=== PATIENT | female | born 1965 | race Two or more races ===

== ENCOUNTER 2019-04-17 22:12 | Emergency (ER) | payer OTHER ==
[~2019-04-17] VITALS: Ht 165.1 cm; Wt 131.5 kg
[2019-04-17] MEDS ORDERED: CLONIDINE0.1 MG GT (22:27)
[2019-04-17 22:29] VITALS: BP 126/84
[2019-04-17] MEDS ORDERED: HYDROcodone/Acetamin 5/325 tab ORAL ONE (23:00)
--- NOTE | 2019-04-17 23:16 | Emergency Room Report ---
History of Present Illness General Chief Complaint: Multiple Trauma/Fall Source: Patient Present Illness HPI 53-year-old female who is morbidly obese. She presents with chief complaint of right rib pain. She slipped and fell in the shower. She said her right side hit the edge of the tub. This occurred just prior to arrival. Pain is to that area. Pain is worse with movement. Worse with inspiration. No nausea no vomiting. No fever chills. Pain is 9 out of 10. Did not take anything for it. Allergies: Coded Allergies: No Known Allergies (Unverified , 04/17/19) Patient History Past Medical History: see triage record, old chart reviewed Past Surgical History: none Pertinent Family History: none Social History: Denies: smoking Last Menstrual Period: hysterectomy 1992 Now: No Immunizations: other Reviewed Nursing Documentation: PMH: Agreed; PSxH: Agreed Nursing Documentation-PMH Past Medical History: No History, Except For Review of Systems Eye: Denies: eye pain, blurred vision ENT: Denies: ear pain, nose congestion, throat swelling Respiratory: Denies: cough, shortness of breath Cardiovascular: Reports: chest pain; Denies: palpitations Gastrointestinal: Denies: abdominal pain, diarrhea, nausea, vomiting Musculoskeletal: Denies: back pain, joint pain Skin: Denies: rash Neurological: Denies: headache, numbness Endocrine: Denies: increased thirst, increased urine Hematologic/Lymphatic: Denies: easy bruising All Other Systems: negative except mentioned in HPI Physical Exam Vital Signs Date Time Temp Pulse Resp B/P (MAP) Pulse Ox O2 Delivery O2 Flow Rate FiO2 04/17/19 22:21 98.2 76 17 126/84 (98) 97 Room Air Vitals normal Sp02 EP Interpretation: reviewed, normal General Appearance: well appearing, no apparent distress, alert, obese Head: normocephalic, atraumatic Eyes: bilateral eye PERRL, bilateral eye EOMI ENT: hearing grossly normal, normal pharynx Neck: full range of motion, supple, no meningismus Respiratory: lungs clear, normal breath sounds, other - Tenderness to the right lateral ribs. No ecchymosis. Cardiovascular #1: regular rate, rhythm, no murmur Gastrointestinal: normal bowel sounds, non tender, no mass, no organomegaly, no bruit, non-distended Musculoskeletal: back normal, gait/station normal, normal range of motion Psychiatric: mood/affect normal Medical Decision Making Diagnostic Impression: Primary Impression: Contusion of rib on right side Qualified Codes: S20.211A - Contusion of right front wall of thorax, initial encounter ER Course Patient presents with a fall and right rib contusion. I see no obvious fracture. There is a small fracture, treatment will be the same. Explained this to the patient. No evidence of pneumothorax or pulmonary contusion. Will discharge home. Chest X-Ray Diagnostic Results Chest X-Ray Diagnostic Results : Chest X-Ray Ordered: Yes # of Views/Limited/Complete: Complete Indication: Chest Pain EP Interpretation: Yes Interpretation: no consolidation, no effusion, no pneumothorax, no acute cardiopulmonary disease Impression: No acute disease Electronically Signed by: Rex Hunt MD Last Vital Signs Date Time Temp Pulse Resp B/P (MAP) Pulse Ox O2 Delivery O2 Flow Rate FiO2 04/17/19 22:29 98.2 80 17 126/84 97 Room Air Status: improved Disposition: HOME, SELF-CARE Condition: Stable Scripts Ibuprofen* (MOTRIN*) 600 Mg Tablet 600 MG ORAL THREE TIMES A DAY, #30 TAB 0 Refills Prov: Rex Hunt MD 04/17/19 Hydrocodone/Acetaminophen 5-325* (HYDROCODONE/ACETAMINOPHEN 5-325*) 1 Each Tablet 1 TAB ORAL Q6H PRN for For Pain, #20 TAB 0 Refills Prov: Rex Hunt MD 04/17/19 Additional Instructions: Follow-up with your doctor in 7 days. Return if symptoms worsen. Rex Hunt MD Apr 17, 2019 23:16
[2019-04-17] MEDS ORDERED: HYDROCODON-ACE1 EA15 ORAL (23:57)
[2019-04-17] MEDS ORDERED: IBUPROFEN600 MG ORAL (23:57)
[2019-04-18 00:01] VITALS: BP 122/80
--- NOTE | 2019-04-18 12:20 | Diagnostic Imaging Report ---
Indication: Chest wall Trauma and right rib pain. Comparison: None Findings: 4 views of the right chest wall was obtained for evaluation of the ribs. There is no acute fracture identified. There is no soft tissue swelling demonstrated. The lung is essentially clear. The costophrenic angle is sharp. There is a scoliosis present involving the thoracic spine. Other osseous structures visualized are unremarkable. Impression: Negative unilateral rib series. Scoliosis
== END 2019-04-18 00:05 | disposition home or self-care (01) ==
LOC: EMR 22:44
DX: S20.211A Contusion of right front wall of thorax, initial encounter (principal); W18.2XXA Fall in (into) shower or empty bathtub, initial encounter; Y93.E1 Activity, personal bathing and showering; Y92.012 Bathroom of single-family (private) house as the place of occurrence of the external cause; Z90.710 Acquired absence of both cervix and uterus
CPT/HCPCS: 71101; Z7502; 99283

== ENCOUNTER 2019-04-21 23:24 | Emergency (ER) | payer OTHER ==
[~2019-04-21] VITALS: Ht 165.1 cm; Wt 131.5 kg
[~2019-04-21 23:24] MED LIST: CLONIDINE0.1 MG GT; HYDROCODON-ACE1 EA15 ORAL; IBUPROFEN600 MG ORAL
[2019-04-21] MEDS ORDERED: CLONIDINE HCL0.1 MG PO (23:33)
[2019-04-21 23:40] VITALS: BP 147/79
--- NOTE | 2019-04-21 23:40 | NUR ---
ED Nurse Note: Recieved pt from home, here with c/o pain to left lateraql abdomen from fall 1 week ago, states pain meds given not effective and remains with severe pain, denies re-injuy to area or any other complaints.
[2019-04-21] MEDS ORDERED: PERCOCET 5-3251 EACH ORAL (23:54)
--- NOTE | 2019-04-21 23:55 | Emergency Room Report ---
History of Present Illness General Chief Complaint: Lower Back Pain or Injury Source: Patient Present Illness HPI This is a 53-year-old female who presents with chief complaint of right rib pain. I saw her 3-4 days ago. She has slipped and fell and hitting her right rib on the edge of the bathtub. X-rays are unremarkable. She came in because she still having pain. Better than last time but is not resolved. Is 8 out of 10. Worse with movement. Worse with inspiration. Worse with coughing. Better with rest. No fever chills but no nausea no vomiting. No shortness of breath. Allergies: Coded Allergies: No Known Allergies (Unverified , 04/17/19) Patient History Past Medical History: see triage record, old chart reviewed Past Surgical History: none Pertinent Family History: none Social History: Denies: smoking Now: No Immunizations: other Reviewed Nursing Documentation: PMH: Agreed; PSxH: Agreed Review of Systems Eye: Denies: eye pain, blurred vision ENT: Denies: ear pain, nose congestion, throat swelling Respiratory: Denies: cough, shortness of breath Cardiovascular: Denies: chest pain, palpitations Gastrointestinal: Denies: abdominal pain, diarrhea, nausea, vomiting Musculoskeletal: Denies: back pain, joint pain Skin: Denies: rash Neurological: Denies: headache, numbness Endocrine: Denies: increased thirst, increased urine Hematologic/Lymphatic: Denies: easy bruising All Other Systems: negative except mentioned in HPI Physical Exam Vital Signs Date Time Temp Pulse Resp B/P (MAP) Pulse Ox O2 Delivery O2 Flow Rate FiO2 04/21/19 23:29 98.2 83 18 147/79 (101) 96 Room Air Vitals with high blood pressure Sp02 EP Interpretation: reviewed, normal General Appearance: well appearing, no apparent distress, alert, obese Head: normocephalic, atraumatic Eyes: bilateral eye PERRL, bilateral eye EOMI ENT: hearing grossly normal, normal pharynx Neck: full range of motion, supple, no meningismus Respiratory: lungs clear, normal breath sounds, other - Right lateral rib tenderness with palpation Cardiovascular #1: regular rate, rhythm, no murmur Gastrointestinal: normal bowel sounds, non tender, no mass, no organomegaly, no bruit, non-distended Musculoskeletal: back normal, gait/station normal, normal range of motion Psychiatric: mood/affect normal Medical Decision Making Diagnostic Impression: Primary Impression: Contusion of rib on right side Qualified Codes: S20.211A - Contusion of right front wall of thorax, initial encounter ER Course Patient with right rib contusion. No fracture dislocation. Official reading of x-rays negative. Even if she has nondisplaced rib fracture, treatment will be the same. Explained this to the patient. Told her that her pain will be there for at least a few weeks. No evidence of pneumothorax and pneumonia. Will discharge home. Last Vital Signs Date Time Temp Pulse Resp B/P (MAP) Pulse Ox O2 Delivery O2 Flow Rate FiO2 04/21/19 23:29 98.2 83 18 147/79 (101) 96 Room Air Status: improved Disposition: HOME, SELF-CARE Condition: Stable Scripts Oxycodone/Acetaminophen 5-325* (PERCOCET 5-325 MG TABLET*) 1 Each Tablet 1 TAB ORAL Q6H PRN for For Pain, #20 TAB Prov: Rex Hunt MD 04/21/19 Additional Instructions: Follow-up with your doctor in 7 days. Rib injuries will usually take several weeks to get better. Return if symptoms worsen. Rex Hunt MD Apr 21, 2019 23:54
[2019-04-22] MEDS ORDERED: HYDROmorphone 1mg/ml Carpuject IM ONE
[2019-04-22 00:10] VITALS: BP 147/79
--- NOTE | 2019-04-22 00:10 | NUR ---
ER DISCHARGE NOTE: Patient is cleared to be discharged per ERMD, pt is aox4, on room air, with stable vital signs. pt was given dc and prescription instructions, pt was able to verbalize understanding, pt id band removed without complications. pt is able to ambulate with steady gait. pt took all belongings.
== END 2019-04-22 00:10 | disposition home or self-care (01) ==
LOC: EMR 23:58
DX: S20.211A Contusion of right front wall of thorax, initial encounter (principal); W01.198A Fall on same level from slipping, tripping and stumbling with subsequent striking against other object, initial encounter; Y92.9 Unspecified place or not applicable; E66.9 Obesity, unspecified; Z68.42 Body mass index [BMI] 45.0-49.9, adult
CPT/HCPCS: 96372; J1170; Z7502; 99283

== ENCOUNTER 2019-04-26 17:06 | Emergency (ER) | payer OTHER ==
[~2019-04-26] VITALS: Ht 165.1 cm; Wt 136.1 kg
[~2019-04-26 17:06] MED LIST changes: +CLONIDINE HCL0.1 MG PO; +PERCOCET 5-3251 EACH ORAL
[2019-04-26 17:30] VITALS: BP 144/87
--- NOTE | 2019-04-26 17:32 | NUR ---
ED Nurse Note: PT REPORTS OF HAVING RIGHT SIDED RIB PAIN X3DAYS S/P FALL A WEEK AGO. NO TRUAMA NOTED. A/OX4.
[2019-04-26] MEDS ORDERED: LIDODERM700 M1 TOPIC (17:57)
[2019-04-26 17:59] VITALS: BP 144/87
--- NOTE | 2019-04-26 18:00 | NUR ---
ED Nurse Note: Pt cleared by health care Provider for discharge. DC instructions/prescription was given and explained to pt and verbalized understanding of teachings. All medical deviecs such as ID band removed. Pt is AAO x4, ambulatory and left with all personal belongings.
--- NOTE | 2019-04-26 18:29 | Emergency Room Report ---
History of Present Illness General Chief Complaint: Pain Source: Patient, Medical Record Present Illness HPI 53 yo F presents to ED complaining of right rib pain. States that she had a fall in the bathroom about 1 week ago. States she is having pain since. Was seen here and had x-rays. States that her pain medications are not helping. 9 out of 10, dull, nonradiating. Denies shortness of breath. Denies any other injuries. No other aggravating relieving factors. Denies any other associated symptoms Allergies: Coded Allergies: No Known Allergies (Unverified , 04/17/19) Patient History Past Medical History: HTN Past Surgical History: none Pertinent Family History: none Social History: Denies: smoking, alcohol use, drug use Last Menstrual Period: hystrectomy Now: No Immunizations: UTD Reviewed Nursing Documentation: PMH: Agreed; PSxH: Agreed Nursing Documentation-PMH Past Medical History: No History, Except For Hx Cardiac Problems: No - HTN, HLD, hysterectomy 1992. Hx Hypertension: Yes Hx Pacemaker: No Hx Asthma: No Hx COPD: No Hx Diabetes: No Hx Cancer: No Hx Gastrointestinal Problems: No Hx Dialysis: No History Of Psychiatric Problem: No Hx Neurological Problems: No Hx Cerebrovascular Accident: No Hx Seizures: No Review of Systems All Other Systems: negative except mentioned in HPI Physical Exam Vital Signs Date Time Temp Pulse Resp B/P (MAP) Pulse Ox O2 Delivery O2 Flow Rate FiO2 04/26/19 17:19 98.6 76 16 144/87 (106) 95 Room Air Sp02 EP Interpretation: reviewed, normal General Appearance: no apparent distress, alert, GCS 15, non-toxic Head: normocephalic Eyes: bilateral eye normal inspection, bilateral eye PERRL ENT: normal ENT inspection Neck: normal inspection Respiratory: lungs clear, normal breath sounds, speaking full sentences, other - R mid axillary rib pain. no bruising/crepitus Cardiovascular #1: regular rate, rhythm, no edema Gastrointestinal: normal inspection Rectal: deferred Genitourinary: no CVA tenderness Musculoskeletal: normal inspection Neurologic: alert, motor strength/tone normal, oriented x3, sensory intact, responsive, speech normal Psychiatric: normal inspection Skin: no rash Lymphatic: normal inspection Medical Decision Making Diagnostic Impression: Primary Impression: Rib contusion Qualified Codes: S20.211D - Contusion of right front wall of thorax, subsequent encounter ER Course Hospital Course 53 yo F presents to ED with R rib pain s/p fall Differential diagnoses include: Fracture, dislocation, sprain, contusion, bursitis Clinical course Patient placed on stretcher. After initial history, physical exam reveals an obese female in no acute distress. there is reproducible R sided rib pain. I reviewed EMR; seen on 04/17. xrays negative. discharged with pain meds. patient returned on 04/22 with same pain. and prescribed additional meds Discussed findings with patient. No reason for additional imaging at this time. 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 I explained that no additional pain meds should be prescribed at this time. We will prescribe a Lidoderm patch to assist with the pain. Patient agrees with plan. Safe for discharge with close outpatient follow-up Diagnosis - rib contusion stable and discharged to home with prescription for lidoderm patch. Followup with PMD. Return to ED if symptoms recur or worsen Last Vital Signs Date Time Temp Pulse Resp B/P (MAP) Pulse Ox O2 Delivery O2 Flow Rate FiO2 04/26/19 17:59 98.6 72 16 144/87 95 Room Air Status: improved Disposition: HOME, SELF-CARE Condition: Stable Scripts Lidocaine Patch* (Lidoderm Patch*) 1 Each Adh..patch 1 PATCH TOPIC DAILY, #7 PATCH 0 Refills Patch(es) may remain in place for up to 12 hours in any 24-hour period. Prov: Alec Ortiz MD 04/26/19 [facility] 24 hour /7 days a week by Appointment Only [address] [facility] [address] [facility] [address] Patient Instructions: Rib Contusion Alec Ortiz MD Apr 26, 2019 18:29
== END 2019-04-26 18:00 | disposition home or self-care (01) ==
LOC: EMR 17:40
DX: S20.211A Contusion of right front wall of thorax, initial encounter (principal); I10 Essential (primary) hypertension; E78.5 Hyperlipidemia, unspecified; W01.0XXA Fall on same level from slipping, tripping and stumbling without subsequent striking against object, initial encounter; Y93.9 Activity, unspecified; Y92.012 Bathroom of single-family (private) house as the place of occurrence of the external cause; Z90.710 Acquired absence of both cervix and uterus
CPT/HCPCS: 99282

== ENCOUNTER 2019-06-09 17:46 | Emergency (ER) | payer OTHER ==
[~2019-06-09] VITALS: Ht 165.1 cm; Wt 135.2 kg
[~2019-06-09 17:46] MED LIST changes: +LIDODERM700 M1 TOPIC
[2019-06-09] MEDS ORDERED: Methocarbamol 750mg tab ORAL ONE (19:30)
[2019-06-09] MEDS ORDERED: Ketorolac 60mg Inj IM ONE (19:30)
--- NOTE | 2019-06-09 19:30 | NUR ---
HAND-OFF: Report given to Ricardo Cui RN.
--- NOTE | 2019-06-09 19:30 | NUR ---
ED Nurse Note: PATIENT RECEIVED FROM [facility]. PATIENT IN US FOR VENOUS DUPLEX WITH US TECH
--- NOTE | 2019-06-09 20:20 | NUR ---
ED Nurse Note: PT BACK FROM US. MEDICATED PT; TOLERATED WELL.
--- NOTE | 2019-06-09 20:38 | Emergency Room Report ---
History of Present Illness General Chief Complaint: Pain Source: Medical Record Present Illness HPI 53-year-old female with history of hypertension currently taking and morbidly obese here complaining of right-sided Thigh pain radiating to right leg. Also complains of calf pain. Reports that she is mobile however due to her morbid obesity she is high risk for developing a DVT. Denies history of tobacco smoke , cancer history, recent travel. Reports that she fell 2 months ago and ever since that she been having pain all over however she did not land on her leg when she fell she does have broken ribs. Denies tingling and numbness at this time. Has been taking ibuprofen more relief. Denies other associated symptoms. Denies chest pain, shortness of breath, palpitation, no other associated symptoms. Rating the pain 10 out of 10 with radiation. Denies at this time. Allergies: Coded Allergies: No Known Allergies (Unverified , 04/17/19) Patient History Past Medical History: see triage record Past Surgical History: unable to obtain Pertinent Family History: none Now: No Immunizations: UTD Reviewed Nursing Documentation: PMH: Agreed; PSxH: Agreed Nursing Documentation-PMH Past Medical History: No History, Except For Hx Cardiac Problems: No - HTN, high cholesterol, hysterectomy 1992. Hx Hypertension: Yes Hx Pacemaker: No Hx Asthma: No Hx COPD: No Hx Diabetes: No Hx Cancer: No Hx Gastrointestinal Problems: No Hx Dialysis: No History Of Psychiatric Problem: No Hx Neurological Problems: No Hx Cerebrovascular Accident: No Hx Seizures: No Review of Systems All Other Systems: negative except mentioned in HPI Physical Exam Vital Signs Date Time Temp Pulse Resp B/P (MAP) Pulse Ox O2 Delivery O2 Flow Rate FiO2 06/09/19 18:35 97.9 73 16 106/63 (77) 95 Room Air Sp02 EP Interpretation: reviewed, normal General Appearance: no apparent distress, alert, GCS 15, non-toxic Head: normocephalic, atraumatic Eyes: bilateral eye normal inspection, bilateral eye PERRL ENT: hearing grossly normal, normal pharynx, no angioedema, normal voice Neck: full range of motion, supple/symm/no masses Respiratory: chest non-tender, lungs clear, normal breath sounds, no wheezing, speaking full sentences Cardiovascular #1: regular rate, rhythm, no edema, no murmur, normal capillary refill Cardiovascular #2: 2+ dorsalis pedis (R), 2+ dorsalis pedis (L) Gastrointestinal: normal bowel sounds, non tender, soft, non-distended, no guarding, no rebound Genitourinary: no CVA tenderness Musculoskeletal: back normal, no calf tenderness, pelvis stable, gait/station normal, Monik's Sign negative, other - Positive straight leg test on the right side Neurologic: alert, motor strength/tone normal, oriented x3, sensory intact, responsive, speech normal Psychiatric: judgement/insight normal, memory normal, mood/affect normal, no suicidal/homicidal ideation Skin: no rash Lymphatic: no adenopathy Medical Decision Making PA Attestation All diagnoses and treatment plans were reviewed and discussed with my supervising physician Dr. Ramírez Diagnostic Impression: Primary Impression: Sciatica ER Course 53-year-old female with history of hypertension currently taking and morbidly obese here complaining of right-sided Thigh pain radiating to right leg. Also complains of calf pain. Reports that she is mobile however due to her morbid obesity she is high risk for developing a DVT. Denies history of tobacco smoke , cancer history, recent travel. Reports that she fell 2 months ago and ever since that she been having pain all over however she did not land on her leg when she fell she does have broken ribs. Denies tingling and numbness at this time. Has been taking ibuprofen more relief. Denies other associated symptoms. Denies chest pain, shortness of breath, palpitation, no other associated symptoms. Rating the pain 10 out of 10 with radiation. Denies at this time. Ddx considered but are not limited to: Lumbar spine sprain, strain, fracture, contusion, neuropathy, sciatica, DVT Vital signs: are WNL, pt. is afebrile H&PE are most consistent with: Sciatica ORDERS: Venous duplex ultrasound of right lower extremity, ibuprofen 800, Robaxin ER intervention: Toradol, Robaxin DISCHARGE: At this time pt. is stable for d/c to home. Will provide printed patient care instructions, and any necessary prescriptions. Care plan and follow up instructions have been discussed with the patient prior to discharge. Patient to follow with primary care provider, take medication as directed, physical therapy and orthopedic referral needed to be requested by primary care. If worsening symptoms return to emergency room. CT/MRI/US Diagnostic Results CT/MRI/US Diagnostic Results : Imaging Test Ordered: Venous duplex US of right lower extremity Impression No acute or chronic DVT Last Vital Signs Date Time Temp Pulse Resp B/P (MAP) Pulse Ox O2 Delivery O2 Flow Rate FiO2 06/09/19 18:35 97.9 73 16 106/63 (77) 95 Room Air Disposition: HOME, SELF-CARE Condition: Stable Scripts Methocarbamol* (ROBAXIN-500*) 500 Mg Tablet 500 MG ORAL TID PRN for For Pain, #15 TAB 0 Refills Prov: Nuris Alvarez 06/09/19 Ibuprofen (Ibu) 800 Mg Tablet 800 MG PO TID, #30 TAB Prov: Nuris Alvarez 06/09/19 Referrals: [facility],REFERRING (PCP) Patient Instructions: Sciatica, [id number] Nuris Alvarez Jun 09, 2019 20:38
[2019-06-09] MEDS ORDERED: ROBAXIN-500MG ORAL (20:39)
[2019-06-09] MEDS ORDERED: IBU800 MG PO (20:39)
--- NOTE | 2019-06-09 20:50 | NUR ---
ER DISCHARGE NOTE: Patient is cleared to be discharged per ERMD, pt is aox4, on room air, with stable vital signs. accompanied by family member. pt was given dc and prescription instructions, pt was able to verbalize understanding, pt id band removed. pt is able to ambulate with steady gait. pt took all belongings.
[2019-06-09 20:56] VITALS: BP 106/63
--- NOTE | 2019-06-09 21:18 | Diagnostic Imaging Report ---
Indication: Right lower extremity pain Technique: Grayscale and duplex images of right lower extremity veins Comparison: none Findings: Grayscale and duplex images demonstrate no evidence of intraluminal thrombus. Normal phasic Doppler waveforms, demonstrating normal augmentation response and no evidence of valvular insufficiency. Normal compressibility Impression: Negative for evidence of right lower extremity deep venous thrombosis
== END 2019-06-09 20:50 | disposition home or self-care (01) ==
LOC: EMR 19:16
DX: M54.30 Sciatica, unspecified side (principal); E66.01 Morbid (severe) obesity due to excess calories; I10 Essential (primary) hypertension; E78.00 Pure hypercholesterolemia, unspecified; Z90.710 Acquired absence of both cervix and uterus; Z68.42 Body mass index [BMI] 45.0-49.9, adult
CPT/HCPCS: 93971; 96372; Z7502; 99284

== ENCOUNTER 2020-04-04 09:12 | Emergency (ER) | payer OTHER ==
[~2020-04-04] VITALS: Ht 165.1 cm; Wt 145.1 kg
[~2020-04-04 09:12] MED LIST changes: +ATORVASTATIN CA10 MG ORAL; +HYDROCHLOROTH12.5 MG ORAL; +IBU800 MG PO; +NITROFURANTOIN100 M2 ORAL; +ROBAXIN-500MG ORAL
[2020-04-04 09:34] VITALS: BP 130/85
[2020-04-04] MEDS ORDERED: Lidocaine 1% MPF 10mg/ml 5ml INJ ONE (09:45)
[2020-04-04] MEDS ORDERED: Mylanta II UD 30ml ORAL ONE (09:45)
[2020-04-04] MEDS ORDERED: Azithromycin 250mg tab ORAL ONE (09:45)
[2020-04-04] MEDS ORDERED: Aspirin Baby 81mg ORAL ONE (09:45)
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
[2020-04-04 10:06] LABS: BASOPHILS % (AUTO) 1.1 % (0.0-2.0); EOSINOPHILS % (AUTO) 1.5 % (0.0-3.0); HEMATOCRIT 36.9 % (37.0-47.0); LYMPHOCYTES % (AUTO) 25.4 % (20.0-45.0); MEAN CORPUSCULAR VOLUME 85 FL (80-99); MONOCYTES % (AUTO) 7.6 % (1.0-10.0); NEUTROPHILS % (AUTO) 64.4 % (45.0-75.0); PLATELET COUNT 286 K/UL (150-450); RED BLOOD COUNT 4.32 M/UL (4.20-5.40); WHITE BLOOD COUNT 6.5 K/UL (4.8-10.8)
[2020-04-04] MEDS ORDERED: cefTRIAXone 1 GM in NS 55 ML IVPB ONE (10:15)
--- NOTE | 2020-04-04 10:20 | Diagnostic Imaging Report ---
EXAM: XR Chest, 1 View CLINICAL HISTORY: CP TECHNIQUE: Frontal view of the chest. COMPARISON: No relevant prior studies available. FINDINGS: Lungs: Unremarkable. No consolidation. Pleural space: Unremarkable. No pneumothorax. Heart: Heart is upper limits normal. Mediastinum: Unremarkable. Bones/joints: Dextroscoliosis of the mid thoracic spine. IMPRESSION: No acute findings in the chest.
[2020-04-04 10:32] LABS: APPEARANCE,URINE SLIGHTLY CLOUDY; BILIRUBIN, URINE NEGATIVE (NEGATIVE); COLOR,URINE PALE YELLOW; GLUCOSE, URINE (UA) NEGATIVE (NEGATIVE); KETONES,URINE NEGATIVE (NEGATIVE); LEUKOCYTE ESTERASE ,URINE 1+ (NEGATIVE); NITRITE,URINE NEGATIVE (NEGATIVE); PH,URINE 7 (4.5-8.0); PROTEIN,URINE NEGATIVE (NEGATIVE); UROBILINOGEN,URINE NORMAL MG/DL (0.0-1.0)
[2020-04-04 11:41] LABS: ALANINE AMINOTRANSFERASE 18 U/L (12-78); ALBUMIN 3.3 G/DL (3.4-5.0); ALKALINE PHOSPHATASE 66 U/L (46-116); ANION GAP 11 mmol/L (5-15); ASPARTATE AMINO TRANSFERASE 22 U/L (15-37); BILIRUBIN,TOTAL 0.5 MG/DL (0.2-1.0); BLOOD UREA NITROGEN 17 mg/dL (7-18); CALCIUM 8.6 MG/DL (8.5-10.1); CARBON DIOXIDE 26 MMOL/L (21-32); CHLORIDE 102 MMOL/L (98-107); CREATINE KINASE 203 U/L (26-308); CREATININE 0.9 MG/DL (0.55-1.30); POTASSIUM 4.2 MMOL/L (3.5-5.1); SODIUM 139 MMOL/L (136-145)
[2020-04-04] MEDS ORDERED: NORCO 5-325 TA1 EAC1 ORAL (11:57)
[2020-04-04] MEDS ORDERED: METRONIDAZOLE500 MG ORAL (11:57)
[2020-04-04] MEDS ORDERED: FAMOTIDINE20 MG ORAL (11:57)
[2020-04-04] MEDS ORDERED: HYDROcodone/Acetamin 5/325 tab ORAL ONE (12:00)
[2020-04-04 12:54] VITALS: BP 130/70
--- NOTE | 2020-04-04 12:59 | NUR ---
discharged home with instruction and rx saline lock dcd ambulated steady gait
== END 2020-04-04 12:40 | disposition home or self-care (01) ==
LOC: EMR 09:34
DX: R07.89 Other chest pain (principal); G44.89 Other headache syndrome; N89.8 Other specified noninflammatory disorders of vagina; Z90.710 Acquired absence of both cervix and uterus; E78.00 Pure hypercholesterolemia, unspecified; T74.11XA Adult physical abuse, confirmed, initial encounter
CPT/HCPCS: 36415; 71045; 80053; 80307; 81003; 82550; 83690; 83880; 84484; 85025; 85610; 85730; 87210; 87491; 87590; 93005; 96365; 96372; 96375; J0696; Q0144; S0028; Z7502; 99284

== ENCOUNTER 2020-08-07 13:13 | Emergency (ER) | payer OTHER ==
[~2020-08-07] VITALS: Ht 165.1 cm; Wt 138.3 kg
[~2020-08-07 13:13] MED LIST changes: +FAMOTIDINE20 MG ORAL; +METRONIDAZOLE500 MG ORAL; +NORCO 5-325 TA1 EAC1 ORAL
--- NOTE | 2020-08-07 13:36 | NUR ---
pt arrives to ER with complaints of lower back pain after falling this morning. pt able to move all extremities without difficulty. pt states taking OTC pain medication without any relief.
[2020-08-07 13:37] VITALS: BP 130/87
[2020-08-07] MEDS ORDERED: oxyCODONE HCL/Acetaminophen 5/325mg ORAL ONE (14:00)
--- NOTE | 2020-08-07 14:02 | Emergency Room Report ---
History of Present Illness General Chief Complaint: Lower Back Pain or Injury Source: Patient Present Illness HPI Patient slipped and fell in her kitchen on a wet floor yesterday. She landed on her gluteal area and also twisted her left shoulder. She also complaining of some left knee pain. She rates the pain 10/10 at this time. Patient took Motrin on the way to the hospital. Patient denies head injury. She did not lose consciousness. She denies any extremity numbness. When asked about the edema she states that she had not been taking her hydrochlorothiazide but took 1 before coming to the hospital. She denies any chest pain or hemoptysis or calf pain. Patient states that she has had back injury in the past and was receiving physical therapy at that time. Patient denies exposure to Covid positive contacts. No fevers, chills, sore throat, chest pain, palpitations, nausea, vomiting, diarrhea, dysuria, abdominal pain, shortness of breath, rashes, depression, anxiety, visual changes, dizziness, headache. Allergies: Coded Allergies: No Known Allergies (Unverified , 04/17/19) COVID-19 Screening Contact w/high risk pt: No Experienced COVID-19 symptoms?: No COVID-19 Testing performed DRAFTSPERSON: No COVID-19 Screening: Negative COVID-19 Patient History Past Medical History: see triage record Social History: Denies: smoking Social History Narrative From home Reviewed Nursing Documentation: PMH: Agreed; PSxH: Agreed Nursing Documentation-PMH Hx Cardiac Problems: No Hx Hypertension: Yes Hx Pacemaker: No Hx Asthma: No Hx COPD: No Hx Diabetes: No Hx Cancer: No Hx Gastrointestinal Problems: No Hx Dialysis: No History Of Psychiatric Problem: No Hx Neurological Problems: No Hx Cerebrovascular Accident: No Hx Seizures: No Review of Systems All Other Systems: negative except mentioned in HPI Physical Exam Vital Signs Date Time Temp Pulse Resp B/P (MAP) Pulse Ox O2 Delivery O2 Flow Rate FiO2 08/07/20 13:33 97.0 74 18 130/87 (101) 95 Room Air Sp02 EP Interpretation: reviewed, normal General Appearance: well appearing, no apparent distress, GCS 15 Head: normocephalic, atraumatic Eyes: bilateral eye normal inspection, bilateral eye PERRL, bilateral eye EOMI ENT: other - Wearing a mask Neck: normal inspection, full range of motion, supple Respiratory: chest non-tender, lungs clear, normal breath sounds Cardiovascular #1: regular rate, rhythm, edema - Bilateral 1+ Cardiovascular #2: 2+ radial (R), 2+ radial (L) Gastrointestinal: normal inspection, overweight Musculoskeletal: gait/station normal, normal range of motion, tenderness - Lumbar spine and left shoulder with ability to sit and stand without difficulty. Passive range of motion with minimal tenderness left shoulder. Tenderness to left knee with ligaments intact and ability to ambulate without difficulty., other - Straight leg raise negative except for some minimal increased back pain Neurologic: alert, motor strength/tone normal, DTRs symmetric, sensory intact, cerebellar normal, speech normal Psychiatric: mood/affect normal Skin: normal color, no rash - Normal venous disease, warm/dry Medical Decision Making Diagnostic Impression: Primary Impression: Fall Qualified Codes: W19.XXXA - Unspecified fall, initial encounter Additional Impressions: Back strain Qualified Codes: S39.012A - Strain of muscle, fascia and tendon of lower back, initial encounter Left shoulder strain Qualified Codes: S46.912A - Strain of unspecified muscle, fascia and tendon at shoulder and upper arm level, left arm, initial encounter Edema Qualified Codes: R60.0 - Localized edema ER Course Patient presents after slip and fall yesterday. Differential includes back strain, back contusion, shoulder sprain, shoulder contusion, knees sprain. Based on [place] knee rules x-rays not indicated. Also based on exam x-rays not indicated for both shoulder and lower back. Patient is given Percocet and Soma here. Patient denies urinary symptoms. Discussed treatment plan with patient and outpatient follow-up. Patient improved with treatment in the emergency department. Patient stable for outpatient observation and treatment. Last Vital Signs Date Time Temp Pulse Resp B/P (MAP) Pulse Ox O2 Delivery O2 Flow Rate FiO2 08/07/20 14:35 97.0 75 18 130/87 95 Room Air Status: improved Disposition: HOME, SELF-CARE Condition: Improved Scripts Hydrocodone/Acetaminophen 5-325* (HYDROCODONE/ACETAMINOPHEN 5-325*) 1 Each Tablet 1 TAB ORAL Q6H PRN for For Pain, #10 TAB 0 Refills Prov: Rito Carey MD 08/07/20 Methocarbamol* (ROBAXIN-500*) 500 Mg Tablet 500 MG ORAL TID PRN for muscle spasms, #10 TAB 0 Refills Prov: Rito Carey MD 08/07/20 Ibuprofen* (MOTRIN*) 600 Mg Tablet 600 MG ORAL Q6H PRN for FOR PAIN, #20 TAB 0 Refills Prov: Rito Carey MD 08/07/20 Rito Carey MD Aug 07, 2020 14:01
[2020-08-07] MEDS ORDERED: ROBAXIN-500MG ORAL (14:04)
[2020-08-07] MEDS ORDERED: IBUPROFEN600 M1 ORAL (14:04)
[2020-08-07] MEDS ORDERED: HYDROCODON-ACE1 EA15 ORAL (14:04)
[2020-08-07 14:35] VITALS: BP 130/87
--- NOTE | 2020-08-07 14:39 | NUR ---
discharged home with instruction and rx follow up with pmd
== END 2020-08-07 14:39 | disposition home or self-care (01) ==
LOC: EMR 14:00
DX: S39.012A Strain of muscle, fascia and tendon of lower back, initial encounter (principal); S46.912A Strain of unspecified muscle, fascia and tendon at shoulder and upper arm level, left arm, initial encounter; R60.0 Localized edema; I10 Essential (primary) hypertension; W01.0XXA Fall on same level from slipping, tripping and stumbling without subsequent striking against object, initial encounter; Y93.01 Activity, walking, marching and hiking; Y92.010 Kitchen of single-family (private) house as the place of occurrence of the external cause
CPT/HCPCS: 99282